=== PATIENT | male | born 1980 | race Caucasian/White ===

== ENCOUNTER 2023-03-01 09:20 | Observation (INO) | payer OTHER, SELFPAY ==
--- OUTSIDE RECORDS SUMMARY | 2023-03-01 09:25 | XMS REPORT | Continuity of Care Document ---
:1980 Author Organization [facility] t Address [address] [place] [address]. [address] [place] [address] Care Team Providers Name Role Phone ZAY MATTHEWS Primary Care Physician Unavailable Jeana SPICER Attending Clinician Unavailable Jeana Francis Attending Clinician Silke Sheffield Attending Clinician SILKE CENTENO Attending Clinician Unavailable Jeana SPICER Admitting Clinician Unavailable SILKE CENETNO Admitting Clinician Unavailable Payers Payer Name Policy Type Policy Number Effective Date Expiration Date S joshua [employer] GENERIC [id number] 2020 00:00:00 Problems Condition Condition Condition Status Onset Resolution Last Treating Co mments Source Name Details Category Date Date Treatment Clinician Date No known No known Disease Unive rs active active ity of problems problems [place] [facility] Allergies, Adverse Reactions, Alerts Allergy Allergy Status Severity Reaction(s) Onset Inactive Treating Comm ents Source Name Type Date Date Clinician Sulfa Propensi Active Rash 2015-10 Univers (Sulfona ty to 2-22 ity of mide adverse 00:00: [place] Antibiot reaction 00 Medica l ics) s Branch SULFA Drug Active Rash 2015-10 Univers (SULFONA Class 2-22 ity of MIDE 00:00: [place] ANTIBIOT 00 Medical ICS) Branch Sulfa Propensi Active Rash 2015-10 Univers (Sulfona ty to 2-22 ity of mide adverse 00:00: [place] Antibiot reaction 00 Medica l ics) s Branch Social History Social Habit Start Date Stop Date Quantity Comments Source Exposure to 2022-03-08 2022-03-18 Not sure [facility] SARS-CoV-2 (event) 00:00:00 10:03:00 Medica l Branch Sex Ass[birth year] At [birth year] [facility] 00:00:00 00:00:00 Medical Branch Smoking Status Start Date Stop Date Source Unknown if ever smoked [facility] [place] Medications Ordered Filled Start Stop Current Ordering Indication Dosage Frequency Signature Comments Components Source Medication Medication Date Date Medication? Clinician (SIG) Name Name iopamidol 2021- No [id number] 100mL 100 mL, Univers (ISOVUE 03-18 Intravenou ity o f 370-500 mL) 17:00: 15:50 s, ONCE, 1 [place] injection 00 :00 dose, On Medica l 100 mL Sat Branch 03/18/22 at 1200, Routine aspirin No 324mg 324 mg, Unive rs chewable 03-18 Oral, ity of tablet 324 16:45: 15:39 ONCE, 1 [place] as mg 00 :00 dose, On Medical Sat Branch 03/18/22 at 1145, Routine NaCl 0.9% No 1000mL at 999 Uni vers (NS) bolus 03-18 mL/hr, ity of infusion 16:30: 17:42 1,000 mL, [place] as 1,000 mL 00 :00 IV Medical Infusion, Branch ONCE, 1 dose, On 03/18/22 at 1130, STAT meclizine 2021- No 25mg 25 mg, Unive rs (TRAVEL-EAS 03-18 Oral, ity of E 16:30: 15:37 ONCE, 1 [place] (MECLIZINE) 00 :00 dose, On Medi corey ) tablet 25 Sat Branch mg 03/18/22 at 1130, DAISHA meclizine Yes [id number] 25mg Take 1 U nivers 25 mg 03-18 tablet by ity of tablet 00:00: mouth [place] 00 every 6 Medical (six) Branch hours as needed for Dizziness. ondansetron 2020- No 4mg 4 mg, Slow Univers (ZOFRAN 10-29 IV Push, ity of (PF)) 18:00: 17:12 ONCE, 1 [place] injection 4 00 :00 dose, Fri Med ical mg 10/29/20 at Branch 1200, DAISHA NaCl 0.9% 2020- No 1000mL at 999 Uni vers (NS) bolus 10-2908 mL/hr, ity of infusion 17:00: 21:26 1,000 mL, [place] as 1,000 mL 00 :00 IV Medical Infusion, Branch ONCE, 1 dose, 10/29/20 at 1100, DAISHA traMADOL 2017-0 Yes 50mg Take 1 Univers (ULTRAM) 50 6-24 tablet by ity of mg tablet 00:00: mouth [place] 00 every 6 Medical (six) Branch hours as needed for Pain (scale 4-6). traMADOL 2017-0 Yes 50mg Take 1 Univers (ULTRAM) 50 6-24 tablet by ity of mg tablet 00:00: mouth [place] 00 every 6 Medical (six) Branch hours as needed for Pain (scale 4-6). SERTRALINE 2015-0 Yes Take by [facility] ers HCL 4-25 mouth. ity of (SERTRALINE 02:44: [place] ORAL) 59 Medical Branch SERTRALINE 2015-0 Yes Take by [facility] ers HCL 4-24 mouth. ity of (SERTRALINE 21:44: [place] ORAL) 59 Medical Branch traMADOL 2015-0 Yes 50mg Take 1 Univers (ULTRAM) 50 4-24 tablet by ity of mg tablet 00:00: mouth [place] 00 every 6 Medical (six) Branch hours as needed for Pain (scale 4-6). Liam Haro PA-C / Sonny Jacques MD TABITHA# [id number] DPS# [id number] x Lic.# [id number] NPI# [id number] traMADOL 2015-0 Yes 50mg Take 1 Univers (ULTRAM) 50 4-24 tablet by ity of mg tablet 00:00: mouth [place] 00 every 6 Medical (six) Branch hours as needed for Pain (scale 4-6). Liam Haro PA-C / Sonny Jacques MD TABITHA# [id number] DPS# [id number] x Lic.# [id number] NPI# [id number] Vital Signs Vital Name Observation Time Observation Value Comments Source Systolic blood 2022-03-18 18:26:00 151 mm[Hg] Univer sity of pressure [place] [facility] Diastolic blood 2022-03-18 18:26:00 88 mm[Hg] Unive rsity of pressure [facility] Heart rate 2022-03-18 18:26:00 52 /min Universi ty of [facility] Respiratory rate 2022-03-18 18:26:00 18 /min Univ ersity of [facility] Oxygen saturation in 2022-03-18 18:26:00 99 /min University of Arterial blood by [facility] Pulse oximetry Branch Body temperature 2022-03-18 15:22:32 36.78 Priti Univ ersity of [facility] Body height 2022-03-18 15:11:00 175.3 cm Universi ty of [facility] Body weight 2022-03-18 15:11:00 86.183 kg Universi ty of [facility] BMI 2022-03-18 15:11:00 28.06 kg/m2 Universi ty [facility] Systolic blood 2020-10-29 20:00:47 131 mm[Hg] Univer sity of pressure [facility] Diastolic blood 2020-10-29 20:00:47 85 mm[Hg] Unive rsity of pressure [facility] Heart rate 2020-10-29 20:00:47 68 /min Universi ty of [facility] Respiratory rate 2020-10-29 20:00:47 14 /min Univ ersity of [facility] Oxygen saturation in 2020-10-29 20:00:47 96 /min University of Arterial blood by [facility] Pulse oximetry Branch Body temperature 2020-10-29 16:35:00 36.78 Priti Univ ersity of [place] [facility] [place] Body weight 2020-10-29 16:35:00 88.905 kg Universi ty [facility] BMI 2020-10-29 16:35:00 28.94 kg/m2 Universi ty [facility] Procedures Procedure Date / Time Performing Clinician Source Performed TROPONIN I 2022-03-18 17:38:00 Jeana Spicer [facility] URINALYSIS 2022-03-18 16:15:00 Jeana Spicer [facility] CT STROKE ANGIOGRAM 2022-03-18 16:01:00 Jeana Spicer [facility] HEAD Medical Branch CT STROKE ANGIOGRAM 2022-03-18 16:01:00 Jeana Spicer [facility] NECK [facility] Branch CT HEAD WO CONTRAST 2022-03-18 15:57:00 Jeana Spicer [facility] XR CHEST 1 VW 2022-03-18 15:47:51 Jeana Spicer Mariia [facility] N-TERMINAL PRO-BNP 2022-03-18 15:35:00 Jeana Spicer [facility] MAGNESIUM 2022-03-18 15:35:00 Jeana Spicer [facility] TROPONIN I 2022-03-18 15:35:00 Jeana Spicer Mariia [facility] COMP. METABOLIC PANEL 2022-03-18 15:35:00 Jeana Spicer [facility] ([id number]) [facility] CBC WITH DIFF 2022-03-18 15:35:00 Jeana Spicer Mariia [facility] CONSENT/REFUSAL FOR 2022-03-18 15:03:23 Doctor Unassigned, No [facility] DIAGNOSIS AND TREATMENT Name [facility] [place] NOTICE OF PRIVACY 2022-03-18 15:03:09 Doctor Unassigned, No [facility] PRACTICES Name [facility] TROPONIN I 2020-10-29 20:00:00 Silke Centeno [facility] XR CHEST 1 VW 2020-10-29 18:15:56 [facility] 2020-10-29 17:11:00 [facility] CHEST 1 VW 2020-10-29 16:53:30 [facility] WITH DIFF 2020-10-29 16:41:00 [facility] PROTHROMBIN TIME / INR 2020-10-29 16:41:00 Silke Centeno [facility] N-TERMINAL PRO-BNP 2020-10-29 16:41:00 Silke Centeno [facility] TROPONIN I 2020-10-29 16:41:00 Silke Centeno [facility] HEPATIC FUNCTION PANEL 2020-10-29 16:41:00 [facility] ([id number]) (ALB,T.PRO,BILI Medical Branch T,BU/BC,ALT,AST,ALK PHOS) BASIC METABOLIC PANEL 2020-10-29 16:41:00 [facility] Silke [facility] (NA, K, CL, CO2, Medical Branch GLUCOSE, BUN, CREATININE, CA) HB ECG ROUTINE & RHYTHM 2020-10-29 16:36:45 Centeno, Silke [facility] Encounters Start End Encounter Admission Attending Care Care Encounter Source Date/Time Date/Time Type Type Clinicians Facility Department ID 2022-03-18 2022-03-18 Emergency X Jeana SPICER [facility] ERT [id number] Univers 10:06:00 13:28:00 [facility] 2022-03-18 2022-03-18 Emergency SoniaJeana [facility] [id number] Univers 10:06:00 13:28:00 Mariiailsa LERNERANGELICA [id number] i ty of [place] [id number] [facility] [id number] [address] 2020-10-29 2020-10-29 Emergency [facility] [id number] Univers 10:37:00 15:27:00 Silke [place] [id number] i ty [facility] [id number] [facility] [id number] [address] 2020-10-29 2020-10-29 Emergency X [facility] ERT [id number] Univers 10:37:00 15:27:00 [facility] Results Test Description Test Time Test Comments Results Result Comments Source TROPONIN I 2022-03-18 18:09:08 Test Item Value Reference Range Interpretation Comme nts TROPONIN I (test code = <0.012 See_Comment [Au tomated message] The [id number]) system which ge nerated this result tra nsmitted reference range : <=0.034 ng/mL. The refe rence range was not u sed to interpret this result as normal/abnormal . ADELAIDE (test code = ADELAIDE) Reference (Normal) Range (defined by the 99th percentile reference limit): <= 0.034 ng/mL Note: Cardiac troponin begins to rise 3-4 hours after the onset of ischemia. Repeat in 4-6 hours if the sample was drawn within 3-4 hours of the onset of the symptom and found normal. Diagnosis of myocardial injury is made with acute changes in cTn concentrations with at least one serial sample above the 99th percentile upper reference limit (URL), taken together with the patient's clinical presentation. Biotin has been reported to cause a negative bias, interpret results relative to patient's use of biotin. Lab Interpretation Normal (test code = 74784-1) [facility] [id number] 16:09:42 Test Item Value Reference Interpretation Comments Range TROPONIN I (test <0.012 See_Comment [Automated code = 2921076486) message] The system which generated this result transmitted reference range : <=0.034 ng/mL. The reference range was not used to interpret this result as normal/abnormal . ADELAIDE (test code = Reference (Normal) ADELAIDE) Range (defined by the 99th percentile reference limit): <= 0.034 ng/mL Note: Cardiac troponin begins to rise 3-4 hours after the onset of ischemia. Repeat in 4-6 hours if the sample was drawn within 3-4 hours of the onset of the symptom and found normal. Diagnosis of myocardial injury is made with acute changes in cTn concentrations with at least one serial sample above the 99th percentile upper reference limit (URL), taken together with the patient's clinical presentation. Biotin has been reported to cause a negative bias, interpret results relative to patient's use of biotin. Lab Interpretation Normal (test code = 38183-7) [facility] [id number] 16:06:41 Test Item Value Reference Range Interpretation Comments NT-proBNP (test code 24 pg/mL See_Comment [Autom ated = 9038027200) message] The system which generated this result transmitted reference range : <=125. The reference range was not used to interpret this result as normal/abnormal . ADELAIDE (test code = ADELAIDE) Biotin has been reported to cause a negative bias, interpret results relative to patient's use of biotin. Lab Interpretation Normal (test code = 93047-8) [facility]2022-[facility]-28 15:58:43 Test Item Value Reference Range Interpretation Comments MAGNESIUM (test code = 2871627353) 1.7 mg/dL 1.7-2.4 Lab Interpretation (test code = Normal 84965-3) [facility] ([id number])2022-03-18 15:58:42 Test Item Value Reference Range Interpretation Comments NA (test code = 138 mmol/L 135-145 4326058975) K (test code = 4.2 mmol/L 3.5-5.0 7284205591) CL (test code = 102 mmol/L 98-108 1548771561) CO2 TOTAL (test code = 22 mmol/L 23-31 L 0089649301) AGAP (test code = 2-16 5696774225) BUN (test code = 16 mg/dL 7-23 2542756040) GLUCOSE (test code = 153 mg/dL 70-110 H 7446260956) CREATININE (test code = 1.13 mg/dL 0.60-1.25 4312903961) TOTAL BILI (test code = 0.6 mg/dL 0.1-1.9 2006319514) CALCIUM (test code = 9.4 mg/dL 8.6-10.6 6565871280) T PROTEIN (test code = 7.8 g/dL 6.3-8.2 1570413960) ALBUMIN (test code = 4.6 g/dL 3.5-5.0 3869024393) ALK PHOS (test code = 104 U/L 34-122 2799798604) ALTv (test code = 29 U/L 5-50 1742-6) AST(SGOT) (test code = 32 U/L 13-40 4299028924) eGFR (test code = mL/min/1.73m2 6837227448) ADELAIDE (test code = ADELAIDE) Association of Glomerular Filtration Rate (GFR) and Staging of Kidney Disease* + --+ --+ ------+| GFR (mL/min/1.73 m2) ?| With Kidney Damage ?| ?Without Kidney Damage+ --------+ --------+ +| ?>90 ?| ?Stage one ?| ? Normal ?+ ---+ ---+ -------+| ?60-89 ?| ?Stage two ?| ? Decreased GFR ? + --+ --+ ------+| ?30-59 ?| ?Stage three ?| ? Stage three ? + --+ --+ ------+| ?15-29 ?| ?Stage four ? | ? Stage four ?+ ---+ ---+ -------+| ?<15 (or dialysis) ? ?| ?Stage five ? | ? Stage five ?+ ---+ ---+ -------+ *Each stage assumes the associated GFR level has been in effect for at least three months. ?Stages 1 to 5, with or without kidney disease, indicate chronic kidney disease. Notes: Determination of stages one and two (with eGFR >59mL/min/1.73 m2) requires estimation of kidney damage for at least three months as defined by structural or functional abnormalities of the kidney, manifested by either:Pathological abnormalities or Markers of kidney damage (including abnormalities in the composition of the blood or urine or abnormalities in imaging tests). Lab Interpretation Abnormal (test code = 36291-9) [facility] WITH [id number] 15:42:01 Test Item Value Reference Range Interpretation Comments WBC (test code = See_Comment [Automated 8623-2) message] The sy stem which generated this result transmitted reference range : 4.20 - 10.70 10*3/?L. The reference range was not used to interpret this result as normal/abnormal . RBC (test code = See_Comment [Automated 885-8) message] The sy stem which generated this result transmitted reference range : 4.26 - 5.52 10*6/?L. The reference range was not used to interpret this result as normal/abnormal . HGB (test code = 16.3 g/dL 12.2-16.4 718-7) HCT (test code = 48.0 % 38.4-49.3 4544-3) MCV (test code = 91.6 fL 81.7-95.6 787-2) MCH (test code = 31.1 pg 26.1-32.7 785-6) MCHC (test code = 34.0 g/dL 31.2-35.0 786-4) RDW-SD (test code = 42.2 fL 38.5-51.6 22862-9) RDW-CV (test code = 12.5 % 12.1-15.4 788-0) PLT (test code = See_Comment [Automated 777-3) message] The sy stem which generated this result transmitted reference range : 150 - 328 10*3/ ?L. The reference r jj was not used to interpret this result as normal/abnormal . MPV (test code = 10.5 fL 9.8-13.0 32623-3) NRBC/100 WBC (test See_Comment [Automat ed code = 1210596917) message] The system which generated this result transmitted reference range : 0.0 - 10.0 /100 WBCs. The refer ence range was not u sed to interpret th is result as normal/abnormal . NRBC x10^3 (test code <0.01 See_Comment [Auto mated = 5287973999) message] The s ystem which generated this result transmitted reference range : 10*3/?L. The reference range was not used to interpret this result as normal/abnormal . GRAN MAT (NEUT) % 60.6 % (test code = 770-8) IMM GRAN % (test code 0.40 % = 8893627839) LYMPH % (test code = 26.2 % 736-9) MONO % (test code = 8.3 % 5905-5) EOS % (test code = 3.4 % 713-8) BASO % (test code = 1.1 % 706-2) GRAN MAT x10^3(ANC) 5.40 10*3/uL 1.99-6.95 (test code = 0059636833) IMM GRAN x10^3 (test 0.04 10*3/uL 0.00-0.06 code = 8761130174) LYMPH x10^3 (test code 2.33 10*3/uL 1.09-3.23 = 731-0) MONO x10^3 (test code 0.74 10*3/uL 0.36-1.02 = 742-7) EOS x10^3 (test code = 0.30 10*3/uL 0.06-0.53 711-2) BASO x10^3 (test code 0.10 10*3/uL 0.01-0.09 H = 704-7) Lab Interpretation Abnormal (test code = 04962-2) [facility] [id number] 21:12:00 Test Item Value Reference Range Interpretation Comments TROPONIN I (test <0.012 See_Comment [Automated code = 6265385435) message] The system which generated this result transmitted reference range : <=0.034 ng/mL. The reference range was not used to interpr et this result as normal/abnormal . ADELAIDE (test code = Equal or Less than ADELAIDE) 0.034 ng/ml---Normal ?Note: Cardiac troponin begins to rise 3-4 hours after the onset of ischemia. Repeat in 4-6 hours if the sample was drawn within 3-4 hours of the onset of the symptom and found normal. Between 0.035 and 0.120 ng/mL--- Borderline. Questionable myocardial injury or necrosis ? ?Note: Serial measurement may be necessary to confirm or exclude the diagnosis of myocardial injury or necrosis; Clinical correlation (symptoms, EKGs, imaging studies, and others) required; Repeat in 4-6 hours if clinically indicated. ? Equal or Higher than 0.121 ng/mL---Abnormal. Myocardial Injury or Necrosis Likely ? Biotin has been reported to cause a negative bias, interpret results relative to patient's use of biotin. ? Lab Interpretation Normal (test code = 87419-3) [facility] 1 [id number] 18:26:15Impression: Unremarkable lateral view of the chest.Exam: XR CHEST 1 10/29/2020 12:08 PM Clinical History: leukocytosis Comparison: Frontal chest radiograph same day Technique: Lateral view of the chest Findings: The retrosternal and retrocardiac spaces are clear.No pleural effusion. ?. The cardiomediastinal silhouette appears normal.Lower thoracic superior endplate small Schmorl nodes. [facility], [facility] Inft User - 10/29/2020 12:27 PM CSTExam: XR CHEST 1 VW 10/29/2020 12:08 PMClinical History: leukocytosis Comparison: Frontal chest radiograph same dayTechnique: Lateral view of the chestFindings:The retrosternal and retrocardiac spaces are clear.No pleural effusion. . The cardiomediastinal silho uette appears normal.Lower thoracic superior endplate small Schmorl nodes.IMPRESSIONImpression: Unremarkable lateral view of the chest.[facility] Hospital[facility]inalysis2021-01-08 17:53:00 Test Item Value Reference Range Interpretation Comments APPEARANCE (test code = Clear Clear 8517893914) COLOR (test code = Yellow Yellow 8980615444) PH (test code = 4.8-8.0 4856651319) SP GRAVITY (test code = 1.003-1.030 9059104803) GLU U QUAL (test code = Normal Normal 4915963218) BLOOD (test code = Negative Negative 4973598218) KETONES (test code = Negative Negative 5399077846) PROTEIN (test code = Negative Negative 2887-8) UROBILIN (test code = Normal Normal 8373005766) BILIRUBIN (test code = Negative Negative 1867310029) NITRITE (test code = Negative Negative 5347689417) LEUK ROM (test code = Negative Negative 7868120205) RBC/HPF (test code = See_Comment [Autom ated message] 3728005104) The system [employer] generated this result transmitted ref erence range: 0 - 3 HP F. The reference range was not used to int erpret this result as normal/abnormal . WBC/HPF (test code = <1 See_Comment [Autom ated message] 3908491564) The system [employer] generated this result transmitted ref erence range: 0 - 5 HP F. The reference range was not used to int erpret this result as normal/abnormal . BACTERIA (test code = Few Negative A 3755745744) Lab Interpretation (test Abnormal code = 85449-7) [facility] Hospital[facility]rop[facility] [id number] 17:13:00 Test Item Value Reference Range Interpretation Comments TROPONIN I (test <0.012 See_Comment [Automated code = 0012645863) message] The system which generated this result transmitted reference range : <=0.034 ng/mL. The reference range was not used to interpr et this result as normal/abnormal . ADELAIDE (test code = Equal or Less than ADELAIDE) 0.034 ng/ml---Normal ?Note: Cardiac troponin begins to rise 3-4 hours after the onset of ischemia. Repeat in 4-6 hours if the sample was drawn within 3-4 hours of the onset of the symptom and found normal. Between 0.035 and 0.120 ng/mL--- Borderline. Questionable myocardial injury or necrosis ? ?Note: Serial measurement may be necessary to confirm or exclude the diagnosis of myocardial injury or necrosis; Clinical correlation (symptoms, EKGs, imaging studies, and others) required; Repeat in 4-6 hours if clinically indicated. ? Equal or Higher than 0.121 ng/mL---Abnormal. Myocardial Injury or Necrosis Likely ? Biotin has been reported to cause a negative bias, interpret results relative to patient's use of biotin. ? Lab Interpretation Normal (test code = 23573-1) [facility]AL [id number] 17:10:00 Test Item Value Reference Range Interpretation Comments NT-proBNP (test code 15 pg/mL See_Comment [Autom ated = 8171630617) message] The system which generated this result transmitted reference range : <=125. The reference range was not used to interpret this result as normal/abnormal . ADELAIDE (test code = ADELAIDE) Biotin has been reported to cause a negative bias, interpret results relative to patient's use of biotin. Lab Interpretation Normal (test code = 28784-3) [facility]th[facility] Time (PT) / [id number] 17:04:00 Test Item Value Reference Range Interpretation Comments PROTIME PATIENT (test See_Comment [Auto mated message] code = 5964-2) The system wh ich generated this result transmitted ref erence range: 12.0 - 1 4.7 Seconds. The re ference range was not u sed to interpret this result as normal/abnor mal. INR (test code = 6301-6) Nor mal INR <1.1; Warfarin Therap eutic range 2.0 to 3. 0 or 2.5 to 3.5, dep ending upon the indica tions. Lab Interpretation (test Normal code = 44876-9) [facility] Metabolic Panel (NA, K, CL, CO2, GLUCOSE, BUN, CREATININE, CA)2020-10-29 17:01:00 Test Item Value Reference Range Interpretation Comments NA (test code = 139 mmol/L 135-145 1397774988) K (test code = 4.1 mmol/L 3.5-5 4522230817) CL (test code = 103 mmol/L 98-108 1426421891) CO2 TOTAL (test code = 26 mmol/L 23-31 0581863665) AGAP (test code = 2-16 6259579036) BUN (test code = 13 mg/dL 7-23 3306475506) GLUCOSE (test code = 114 mg/dL 70-110 H 7321797738) CREATININE (test code = 1.35 mg/dL 0.6-1.25 H 1176025532) CALCIUM (test code = 9.2 mg/dL 8.6-10.6 7610708685) eGFR Calculation mL/min/1.73m2 (Non-) (test code = 8119819888) eGFR Calculation mL/min/1.73m2 () (test code = 5867661668) ADELAIDE (test code = ADELAIDE) Association of Glomerular Filtration Rate (GFR) and Staging of Kidney Disease* + --+ --+ ------+| GFR (mL/min/1.73 m2) ?| With Kidney Damage ?| ?Without Kidney Damage+ --------+ --------+ +| ?>90 ?| ?Stage one ?| ? Normal ?+ ---+ ---+ -------+| ?60-89 ?| ?Stage two ?| ? Decreased GFR ? + --+ --+ ------+| ?30-59 ?| ?Stage three ?| ? Stage three ? + --+ --+ ------+| ?15-29 ?| ?Stage four ? | ? Stage four ?+ ---+ ---+ -------+| ?<15 (or dialysis) ? ?| ?Stage five ? | ? Stage five ?+ ---+ ---+ -------+ *Each stage assumes the associated GFR level has been in effect for at least three months. ?Stages 1 to 5, with or without kidney disease, indicate chronic kidney disease. Notes: Determination of stages one and two (with eGFR >59mL/min/1.73 m2) requires estimation of kidney damage for at least three months as defined by structural or functional abnormalities of the kidney, manifested by either:Pathological abnormalities or Markers of kidney damage (including abnormalities in the composition of the blood or urine or abnormalities in imaging tests). Lab Interpretation Abnormal (test code = 58689-3) [facility] (ALB, T.PRO, BILI T, BU/BC, ALT, AST, ALK PHOS)2020-10-29 17:00:00 Test Item Value Reference Range Interpretation Comments TOTAL BILI (test code = 0028137215) 0.6 mg/dL 0.1-1.1 BILI UNCON (test code = 0994366662) 0.5 mg/dL 0.1-1.1 BILI CONJ (test code = 3765160839) 0.0 mg/dL 0-0.3 T PROTEIN (test code = 6027325234) 8.0 g/dL 6.3-8.2 ALBUMIN (test code = 3214659645) 4.6 g/dL 3.5-5 ALK PHOS (test code = 2346637295) 132 U/L 34-122 H ALTv (test code = 1742-6) 53 U/L 5-50 H AST(SGOT) (test code = 8322245714) 42 U/L 13-40 H Lab Interpretation (test code = Abnormal 93453-8) [facility] 1 [id number] 16:55:39Impression: No acute cardiac pulmonary abnormality.Exam: XR CHEST 1 VW 10/29/2020 10:47 AM Clinical History: CP Comparison: None Technique: frontal view of the chest Findings: The lungs are clear. ?No pleural effusion. ?No pneumothorax. The cardiac size is normal No acute osseous abnormality. [facility], Radiant Results Inft User - 10/29/2020 10:56 AM CSTExam: XR CHEST 1 VW 10/29/2020 10:47 AMClinical History:CP Comparison: NoneTechnique: frontal view of the chestFindings:The lungs are clear. No pleural effusion. No pneumothorax. The cardiac size is normal No acute osseous abnormality.IMPRESSIONImpression: No acute cardiac pulmonary abnormality.[facility] with [facility] 2020-10-29 16:53:00 Test Item Value Reference Range Interpretation Comments WBC (test code = See_Comment H [Automated 6690-2) message] The system which generated this result transmit jen reference range : 4.20 - 10.70 10*3/?L. The reference range was not used to interpret this result as normal/abnormal . RBC (test code = See_Comment [Automated 789-8) message] The system which generated this result transmit jen reference range : 4.26 - 5.52 10*6/?L. The reference range was not used to interpret this result as normal/abnormal . HGB (test code = 16.4 g/dL 12.2-16.4 718-7) HCT (test code = 48.7 % 38.4-49.3 4544-3) MCV (test code = 91.7 fL 81.7-95.6 787-2) MCH (test code = 30.9 pg 26.1-32.7 785-6) MCHC (test code = 33.7 g/dL 31.2-35 786-4) RDW-SD (test code = 44.6 fL 38.5-51.6 65535-2) RDW-CV (test code = 13.2 % 12.1-15.4 788-0) PLT (test code = See_Comment [Automated 777-3) message] The system which generated this result transmit jen reference range : 150 - 328 10*3/ ?L. The reference range was not u sed to interpret th is result as normal/abnormal . MPV (test code = 10.6 fL 9.8-13 56598-4) NRBC/100 WBC (test See_Comment [Automat ed code = 6034179136) message] The system which generated this result transmit jen reference range : 0.0 - 10.0 /100 WBCs. The reference range was not used to interpret this result as normal/abnormal . NRBC x10^3 (test code <0.01 See_Comment [Auto mated = 0128522597) message] The system which generated this result transmit jen reference range : 10*3/?L. The reference range was not used to interpret this result as normal/abnormal . GRAN MAT (NEUT) % 67.6 % (test code = 770-8) IMM GRAN % (test code 0.60 % = 9175666041) LYMPH % (test code = 21.3 % 736-9) MONO % (test code = 6.8 % 5905-5) EOS % (test code = 3.1 % 713-8) BASO % (test code = 0.6 % 706-2) GRAN MAT x10^3(ANC) 10.58 10*3/uL 1.99-6.95 H (test code = 9162011008) IMM GRAN x10^3 (test 0.10 10*3/uL 0-0.06 H code = 9645052714) LYMPH x10^3 (test code 3.34 10*3/uL 1.09-3.23 H = 731-0) MONO x10^3 (test code 1.06 10*3/uL 0.36-1.02 H = 742-7) EOS x10^3 (test code = 0.48 10*3/uL 0.06-0.53 711-2) BASO x10^3 (test code 0.10 10*3/uL 0.01-0.09 H = 704-7) Lab Interpretation Abnormal (test code = 42791-0) [facility]"
[2023-03-01 09:55] LABS: Absolute Lymphocytes (CBC) 1.6 K/uL (0.7-4.9); Hematocrit 47.7 % (39.6-49.0); Lymphocytes % 15.9 % (15.3-44.8); MCV 90.4 fL (80-100); MPV 8.4 fL (7.6-11.3); RBC Red Blood Cell Count 5.27 M/uL (4.33-5.43)
--- NOTE | 2023-03-01 09:55 | RAD REPORT ---
EXAM DESCRIPTION: CT - Ct Stroke Brain Wo Cont - 03/01/2023 9:43 am CLINICAL HISTORY: STROKE ALERT COMPARISON: Head angio dated 03/01/2023; Neck Angio dated 03/01/2023 TECHNIQUE: Noncontrast head CT images ad were obtained without IV contrast. Multiplanar reformats we re generated and reviewed. All CT scans are performed using dose optimization technique as appropriate and may include automated exposure control or mA/KV adjustment according to patient size. FINDINGS: No intracranial hemorrhage, mass, or edema. Midline structures are unremarkable. Normal ventricular caliber for age. Grace-white matter differentiation is preserved, without evidence of acute infarct. No abnormal extra- axial fluid collections. Mastoid air cells and visualized portions of the paranasal sinuses are clear. No acute bony findings. IMPRESSION: No evidence of an acute intracranial process. The findings were communicated to Mykel Fitzpatrick on 03/01/2023 at 09:50 hours.
[2023-03-01 10:02] LABS: Protime INR 1.02
--- NOTE | 2023-03-01 10:11 | RAD REPORT ---
EXAM DESCRIPTION: CT - Head angio - 03/01/2023 9:46 am CLINICAL HISTORY: TIA COMPARISON: Ct Stroke Brain Wo Cont dated 03/01/2023; Neck Angio dated 03/01/2023 TECHNIQUE: Axial CT angiography images of the head was performed with multiplanar and maximum intens ity projection reconstructions. Images performed following intravenous administration of 100mL Isovue 370. All CT scans are performed using dose optimization technique as appropriate and may include automated exposure control or mA/KV adjustment according to patient size. FINDINGS: No evidence of large vessel occlusion. No evidence of aneurysm or dissection flap is detec jen. No flow-limiting stenosis or vascular malformation identified. Antegrade flow is seen in the vertebral arteries. The vertebral arteries are codominant. The visualized dural venous sinuses are grossly patent. Scattered areas of paranasal sinus mucosal thickening. Small air-fluid levels in the right maxillary and bilateral sphenoid sinuses. IMPRESSION: No evidence of large vessel occlusion or flow-limiting stenosis.
[2023-03-01 10:16] LABS: Albumin 3.9 g/dL (3.4-5.0); Bilirubin Direct 0.1 mg/dL (0-0.2); Bilirubin Indirect, Calculated 0.4 (0.2-0.8); Bilirubin Total 0.5 mg/dL (0.2-1.0); Magnesium 2.2 mg/dL (1.6-2.4); Potassium 3.8 mEq/L (3.5-5.1); Protein, Total 8.1 g/dL (6.4-8.2); Troponin High Sensitivity 23.4 pg/mL (<58.9)
--- NOTE | 2023-03-01 10:28 | RAD REPORT ---
EXAM DESCRIPTION: CT - Neck Angio - 03/01/2023 9:53 am CLINICAL HISTORY: tia COMPARISON: No comparisons TECHNIQUE: Axial CT angiography images of the head was performed with multiplanar and maximum intens ity projection reconstructions. Images performed following intravenous administration of 100mL Isovue 370. All CT scans are performed using dose optimization technique as appropriate and may include automated exposure control or mA/KV adjustment according to patient size. Quantification of carotid stenosis, if any, is performed according to NASCET criteria. FINDINGS: A left aortic arch is identified with normal three vessel configuration of the great vesse ls. No significant flow abnormality is seen of the common carotid bilaterally. No significant stenosis is identified involving the cervical segments of both internal carotid arteri es. Small crescentic peripheral isodense filling defects along the posterior wall of the internal car otid arteries more apparent on the right, may relate to mild noncalcified atherosclerotic plaque. Normal flow is seen within both vertebral arteries. IMPRESSION: No significant flow abnormality of the neck vessels is identified.
--- NOTE | 2023-03-01 10:32 | RAD REPORT ---
EXAM DESCRIPTION: [facility] Single View03/01/2023 10:03 am CLINICAL HISTORY: tia COMPARISON: CHEST PA AND LAT 2 VIEW dated 04/13/2015 TECHNIQUE: Portable AP view of the chest. FINDINGS: The lungs are clear. No pneumothorax or effusion. The cardiomediastinal contours are unrem arkable. IMPRESSION: No acute cardiopulmonary process.
[2023-03-01] MEDS ORDERED: ASPIRIN 325 MG TAB ONE (10:35)
--- NOTE | 2023-03-01 11:00 | EDPHYS ---
Physician Documentation [facility] Name: Declan Dee Age: 43 yrs Sex: Male : 1980 Arrival Date: 03/01/2023 Time: 09:20 Bed 14 Private MD: ED Physician Mykel Fitzpatrick HPI: 03/01 09:40 This 43 yrs old Male presents to ER via Ambulatory with complaints of Headache, rt numbness. 09:40 Patient presents to the ED with a headache starting since last night as well as a rt numbness to the left side of his face as well as a dizziness which she does not describe as a lightheadedness or vertigo. The patient states that he first noticed the numbness at about 630, however, his last known normal without any neurologic symptoms were at about 3:30 AM this morning when he woke up. Patient states that he has had a TIA in the past. Patient states that his numbness has almost completely resolved except for some numbness to the left corner of his mouth. Denies any weakness. Denies other acute complaints at this time. Symptoms are moderate in severity, no other aggravating or alleviating factors.. Historical: - Allergies: 09:24 No Known Allergies; ld1 - PMHx: 09:24 Hypertensive disorder; Transient cerebral ischemia; ld1 - PSHx: 09:24 None; ld1 - Immunization history:: Adult Immunizations up to date, Client reports having NOT received the Covid vaccine. - Social history:: Smoking status: Patient denies any tobacco usage or history of. Patient/guardian denies using alcohol. - Family history:: not pertinent. ROS: 09:40 Constitutional: Negative for fever, chills, and weight loss, Cardiovascular: Negative rt for chest pain, palpitations, and edema, Respiratory: Negative for shortness of breath, cough, wheezing, and pleuritic chest pain, MS/Extremity: Negative for injury and deformity, Skin: Negative for injury, rash, and discoloration, Psych: Negative for depression, anxiety, suicide ideation, homicidal ideation, and hallucinations. 09:40 Abdomen/GI: Positive for nausea, Negative for abdominal pain. 09:40 Neuro: Positive for dizziness, headache, numbness. Exam: 09:40 Constitutional: This is a well developed, well nourished patient who is awake, alert, rt and in no acute distress. Head/Face: Normocephalic, atraumatic. Chest/axilla: Normal chest wall appearance and motion. Nontender with no deformity. No lesions are appreciated. Cardiovascular: Regular rate and rhythm with a normal S1 and S2. No gallops, murmurs, or rubs. Normal PMI, no JVD. No pulse deficits. Respiratory: Lungs have equal breath sounds bilaterally, clear to auscultation and percussion. No rales, rhonchi or wheezes noted. No increased work of breathing, no retractions or nasal flaring. Abdomen/GI: Soft, non-tender, with normal bowel sounds. No distension or tympany. No guarding or rebound. No evidence of tenderness throughout. MS/ Extremity: Pulses equal, no cyanosis. Neurovascular intact. Full, normal range of motion. Psych: Awake, alert, with orientation to person, place and time. Behavior, mood, and affect are within normal limits. 09:40 Eyes: Extraocular muscles intact, no nystagmus, no visual field deficits. 09:40 Neuro: Cranial nerves II through XII intact, strength and sensation intact in upper and lower extremities, speech normal, no ataxia on [id number]. 10:03 ECG was reviewed by the Attending Physician. rt 11:12 Radiologist reports: no Acute findings rt Vital Signs: 09:22 BP 141 / 102; Pulse 75; Resp 22; Temp 98.7(O); Pulse Ox 98% on R/A; Weight 86.18 kg; ld1 Height 5 ft. 9 in. ; Pain 0/10; 10:06 BP 135 / 81; Pulse 73; Resp 14; Pulse Ox 100% on R/A; ld1 11:07 BP 130 / 92; Pulse 66; Resp 14; Pulse Ox 100% on R/A; Pain 5/10; nj1 09:22 Body Mass Index 28.06 (86.18 kg, 175.26 cm) ld1 09:22 Pain Scale: Adult ld1 11:07 Pain Scale: Adult nj1 MDM: 09:30 Patient medically screened. rt 11:12 Differential diagnosis: CVA, TIA. Data reviewed: vital signs, nurses notes, lab test rt result(s), radiologic studies. Consideration of Admission/Observation Patient was admitted/placed on observation. Management of patient was discussed with the following: Hospitalist: Agrees to admit. I considered the following discharge prescriptions or medication management in the emergency department Medications were administered in the Emergency Department. See MAR. Independent interpretation of the following test(s) in the Emergency Department CT Scan: My interpretation is No hemorrhage seen on my interpretation of the CT scan images. Counseling: I had a detailed discussion with the patient and/or guardian regarding: the historical points, exam findings, and any diagnostic results supporting the discharge/admit diagnosis, the presence of at least one elevated blood pressure reading (>120/80) during this emergency department visit, the need for further work-up and treatment in the hospital. ED course: Patient's last known normal was greater than 4.5 hours prior to arrival, contraindicating thrombolytic administration.. 03/01 09:32 Order name: Basic Metabolic Panel; Complete Time: 10:18 rt 03/01 09:32 Order name: CBC with Diff; Complete Time: 10:18 rt 03/01 09:32 Order name: Hepatic Function; Complete Time: 10:18 rt 03/01 09:32 Order name: High Sensitivity Troponin; Complete Time: 10:18 rt 03/01 09:32 Order name: Magnesium; Complete Time: 10:18 rt 03/01 09:32 Order name: Protime (+inr); Complete Time: 10:18 rt 03/01 09:32 Order name: Ptt, Activated; Complete Time: 10:18 rt 03/01 09:49 Order name: Glucose, Ancillary Testing; Complete Time: 10:18 EDPR 03/01 10:18 Order name: CREATININE WHOLE BLOOD; Complete Time: 10:19 EDPR 03/01 11:22 Order name: CBC with Automated Diff EDMS 03/01 11:22 Order name: CBC with Automated Diff EDMS 03/01 11:22 Order name: Comprehensive Metabolic Panel EDPR 03/01 11:22 Order name: Comprehensive Metabolic Panel EDPR 03/01 11:22 Order name: Factor V Leiden Mutation EDMS 03/01 11:22 Order name: Factor V Leiden Mutation EDMS 03/01 11:22 Order name: Lipid Profile EDMS 03/01 11:22 Order name: Lipid Profile EDPR 03/01 11:22 Order name: Magnesium EDMS 03/01 11:22 Order name: Magnesium EDMS 03/01 11:22 Order name: Phosphorus EDMS 03/01 11:22 Order name: Phosphorus EDPR 03/01 09:32 Order name: CT Stroke Brain w/o Contrast; Complete Time: 10:18 rt 03/01 09:32 Order name: Stroke CXR 1 View; Complete Time: 10:34 rt 03/01 09:32 Order name: CT Head Angio; Complete Time: 10:18 rt 03/01 09:32 Order name: CT Neck Angio; Complete Time: 10:34 rt 03/01 11:18 Order name: Brain Wo Cont EDPR 03/01 11:22 Order name: Echo with Doppler EDMS 03/01 11:22 Order name: Chest Pa And Lat (2 Views) EDPR 03/01 09:32 Order name: EKG; Complete Time: 09:33 rt 03/01 11:22 Order name: Physical Therapy Consult EDPR 03/01 11:22 Order name: Heart Healthy EDPR 03/01 11:22 Order name: EKG Electrocardiogram EDPR 03/01 09:32 Order name: Accucheck; Complete Time: 09:37 rt 03/01 09:32 Order name: Cardiac monitoring; Complete Time: 09:32 rt 03/01 09:32 Order name: EKG - Nurse/Tech; Complete Time: 10:03 rt 03/01 09:32 Order name: IV Saline Lock; Complete Time: 09:32 rt 03/01 09:32 Order name: Labs collected and sent; Complete Time: 09:37 rt 03/01 09:32 Order name: NPO; Complete Time: 09:32 rt 03/01 09:32 Order name: O2 Per Protocol; Complete Time: 09:32 rt 03/01 09:32 Order name: O2 Sat Monitoring; Complete Time: 09:32 rt 03/01 09:32 Order name: Stroke Swallow Screen; Complete Time: 09:32 rt EC:03 Rate is 58 beats/min. Rhythm is regular, Sinus bradycardia with No ectopy. Right axis rt deviation noted. HI interval is normal. QRS interval is normal. QT interval is normal. No Q waves. T waves are Normal. No ST changes noted. Interpreted by me. Administered Medications: 10:31 Drug: Aspirin PO 325 mg Route: PO; nj1 11:31 Follow up: Response: No adverse reaction nj1 11:06 Drug: Acetaminophen PO 1000 mg Route: PO; nj1 11:31 Follow up: Response: No adverse reaction nj1 Disposition Summary: 03/01/23 10:59 Hospitalization Ordered Hospitalization Status: Observation rt Provider: Twila Rodriguez rt Location: Telemetry/MedSurg (observation) rt Condition: Stable rt Problem: new rt Symptoms: have improved rt Bed/Room Type: Standard rt Room Assignment: 228(03/01/23 13:17) em1 Diagnosis - Transient cerebral ischemic attack, unspecified rt Forms: - Medication Reconciliation Form rt - SBAR form rt Signatures: Dispatcher [employer] [place] Win em1 Sheila Lay, RN RN ld1 Mykel Fitzpatrick MD MD rt Stephani Kauffman RN RN nj1 Corrections: (The following items were deleted from the chart) 13:17 10:59 rt em1
--- NOTE | 2023-03-01 11:00 | ER ---
Nurse's Notes [facility] Name: Declan Dee Age: 43 yrs Sex: Male : 1980 Arrival Date: 03/01/2023 Time: 09:20 Bed 14 Private MD: Diagnosis: Transient cerebral ischemic attack, unspecified Presentation: 03/01 09:22 Chief complaint: EMS states: transported patient from [facility] for left sided facial ld1 numbness since 0630AM today. Pt c/o left facial numbness, dizziness, nausea, headache. Coronavirus screen: At this time, the client does not indicate any symptoms associated with coronavirus-19. Ebola Screen: No symptoms or risks identified at this time. Initial Sepsis Screen: Does the patient meet any 2 criteria? No. Patient's initial sepsis screen is negative. Does the patient have a suspected source of infection? No. Patient's initial sepsis screen is negative. Risk Assessment: Do you want to hurt yourself or someone else? Patient reports no desire to harm self or others. Onset of symptoms was March 01, 2023 at 06:30. 09:22 Method Of Arrival: Ambulatory ld1 09:22 Acuity: ROHIT 2 ld1 Triage Assessment: 09:24 General: Appears in no apparent distress. comfortable, Behavior is calm, cooperative, ld1 appropriate for age. Pain: Denies pain. EENT: No signs and/or symptoms were reported regarding the EENT system. Neuro: Reports dizziness, headache numbness in left cheek. Cardiovascular: Capillary refill < 3 seconds Patient's skin is warm and dry. Rhythm is sinus rhythm. Respiratory: Airway is patent Respiratory effort is even, labored. GI: Abdomen is flat, non-distended. : No signs and/or symptoms were reported regarding the genitourinary system. Derm: No signs and/or symptoms reported regarding the dermatologic system. Musculoskeletal: No signs and/or symptoms reported regarding the musculoskeletal system. Historical: - Allergies: 09:24 No Known Allergies; ld1 - PMHx: 09:24 Hypertensive disorder; Transient cerebral ischemia; ld1 - PSHx: 09:24 None; ld1 - Immunization history:: Adult Immunizations up to date, Client reports having NOT received the Covid vaccine. - Social history:: Smoking status: Patient denies any tobacco usage or history of. Patient/guardian denies using alcohol. - Family history:: not pertinent. Screenin:26 [facility] ED Fall Risk Assessment (Adult) History of falling in the last 3 months, ld1 including since admission No falls in past 3 months (0 pts). Abuse screen: Denies threats or abuse. Denies injuries from another. Nutritional screening: No deficits noted. Tuberculosis screening: No symptoms or risk factors identified. Assessment: 09:26 Reassessment: See triage assessment. ERP at bedside assessing patient. ld1 10:19 Reassessment: Patient appears in no apparent distress at this time. Patient and/or ld1 family updated on plan of care and expected duration. Pain level reassessed. Patient is alert, oriented x 3, equal unlabored respirations, skin warm/dry/pink. Patient denies pain at this time. 11:06 Reassessment: Patient appears in no apparent distress at this time. Patient and/or nj1 family updated on plan of care and expected duration. Pain level reassessed. Patient is alert, oriented x 3, equal unlabored respirations, skin warm/dry/pink. Pain: Complains of pain in Head Pain currently is 5 out of 10 on a pain scale. 12:00 Reassessment: Patient appears in no apparent distress at this time. Patient and/or nj1 family updated on plan of care and expected duration. Pain level reassessed. Patient is alert, oriented x 3, equal unlabored respirations, skin warm/dry/pink. 13:25 Reassessment: Unsuccessful attempt to call report at this time. Nurse is at lunch. nj1 Vital Signs: 09:22 BP 141 / 102; Pulse 75; Resp 22; Temp 98.7(O); Pulse Ox 98% on R/A; Weight 86.18 kg; ld1 Height 5 ft. 9 in. ; Pain 0/10; 10:06 BP 135 / 81; Pulse 73; Resp 14; Pulse Ox 100% on R/A; ld1 11:07 BP 130 / 92; Pulse 66; Resp 14; Pulse Ox 100% on R/A; Pain 5/10; nj1 09:22 Body Mass Index 28.06 (86.18 kg, 175.26 cm) ld1 09:22 Pain Scale: Adult ld1 11:07 Pain Scale: Adult [facility] ED Course: :22 Patient arrived in ED. ld1 09:22 Mykel Fitzpatrick MD is Attending Physician. rt 09:22 Sheila Lay, RN is Primary Nurse. ld1 09:24 Triage completed. ld1 09:24 Arm band placed on right wrist. ld1 09:26 Patient has correct armband on for positive identification. Placed in gown. Bed in low ld1 position. Call light in reach. Side rails up X2. electronic device monitor on. Pulse ox on. NIBP on. Door closed. Noise minimized. Warm blanket given. 09:26 No provider procedures requiring assistance completed. Maintain EMS IV. Dressing ld1 intact. Good blood return noted. Site clean \T\ dry. Gauge \T\ site: 18G LAC. 09:45 CT Stroke Brain w/o Contrast In Process Unspecified. EDMS 09:48 CT Head Angio In Process Unspecified. EDMS 09:55 CT Neck Angio In Process Unspecified. EDMS 10:05 Stroke CXR 1 View In Process Unspecified. EDMS 10:59 Twila Rodriguez MD is Hospitalizing Provider. rt 14:03 Patient admitted, IV remains in place. nj1 Administered Medications: 10:31 Drug: Aspirin PO 325 mg Route: PO; nj1 11:31 Follow up: Response: No adverse reaction nj1 11:06 Drug: Acetaminophen PO 1000 mg Route: PO; nj1 11:31 Follow up: Response: No adverse reaction [facility] Medication: 09:26 VIS not applicable for this client. ld1 Outcome: 10:59 Decision to Hospitalize by Provider. rt 14:03 Admitted to Med/surg accompanied by tech, via wheelchair, room 228, Report called to [facility] Nurse Velazquez 14:03 Condition: stable 14:03 Instructed on the need for admit. 14:26 Patient left the ED. iw Signatures: Dispatcher [employer] EDMS Nadiya Wick RN RN iw Sheila Lay RN RN ld1 Mykel Fitzpatrick MD MD rt Stephani Kauffman RN RN nj
[2023-03-01] MEDS ORDERED: ACETAMINOPHEN 500 MG TAB ONE (11:11)
[2023-03-01] MEDS ORDERED: ONDANSETRON 4 MG/2 ML VIAL IV PRN (11:17)
[2023-03-01] MEDS ORDERED: ACETAMINOPHEN 500 MG TAB PO PRN (11:17)
--- NOTE | 2023-03-01 11:26 | P.HP ---
Certification for Inpatient Patient admitted to: Observation With expected LOS: <2 Midnights Patient will require the following post-hospital care: None Practitioner: I am a practitioner with admitting privileges, knowledge of patient current condition, hospital course, and medical plan of care. Services: Services provided to patient in accordance with Admission requirements found in Title 42 Section 412.3 of the Code of Federal Regulations Patient History Date of Service: 03/01/23 History of Present Illness: Patient is a 43-year-old gentleman who came into the hospital with a headache and numbness to the left side of the face. Patient also was having vertigo type symptoms. Patient states that he first noticed the numbness around 630 in the morning. However he started having neurologic symptoms last night before he went to bed as he was having a severe headache. He has had numbness when he was awake but he cannot recall if he had numbness when he was awake but he does know that he had it around 6 o'clock. As he not really able to recall the exact time that he was normal we will hold off on thrombolytics. Will touch base with neurology as well. His symptoms had pretty much resolved except for some vague numbness to the left side of his mouth. Will get an MRI of the brain to further evaluate. He will be admitted for observation and will monitor his hemodynamics closely. - Past Medical/Surgical History -: TIA Past Surgical History: Patient denies surgical history - Family History Father Family History: Reviewed- Non-Contributory - Social History Smoking Status: Former smoker Alcohol use: No CD- Drugs: No Review of Systems 10-point ROS is otherwise unremarkable Physical Examination - Vital Signs Temperature: 98 F Blood Pressure: 140/80 Pulse: 70 Respirations: 20 Pulse Ox (%): 96 - Physical Exam General: Alert, In no apparent distress, Oriented x3 HEENT: Atraumatic, PERRLA, Mucous membr. moist/pink, EOMI, Sclerae nonicteric Neck: Supple, 2+ carotid pulse no bruit, No LAD, Without JVD or thyroid abnormality Respiratory: Clear to auscultation bilaterally, Normal air movement Cardiovascular: Regular rate/rhythm, Normal S1 S2, No murmurs Gastrointestinal: Normal bowel sounds, Soft and benign, Non-distended, No tenderness Musculoskeletal: No clubbing, No swelling, No tenderness Integumentary: No rashes Neurological: Normal gait, Normal speech, Normal strength at 5/5 x4 extr, Normal tone, Cranial nerves 3-12 intact, Normal affect, Abnormal sensation Lymphatics: No axilla or inguinal lymphadenopathy - Studies Laboratory Data (last 24 hrs) 03/01/23 09:38: PT 11.2, INR 1.02, APTT 30.8 03/01/23 09:38: WBC 9.90, Hgb 16.2, Hct 47.7, Plt Count 281 03/01/23 09:38: Sodium 135 L, Potassium 3.8, BUN 19 H, Creatinine 1.16, Glucose 149 H, Magnesium 2.2, Total Bilirubin 0.5, AST 25, ALT 46, Alkaline Phosphatase 105 Assessment & Plan - Problems (Diagnosis) (1) TIA (transient ischemic attack) Current Visit: Yes Status: Acute (2) Left facial numbness Current Visit: Yes Status: Acute - Plan -MRI of the brain -neurology consultation as outpatient -physical therapy evaluation -DVT prophylaxis -bedside swallow eval -Antiplatelet therapy and statin therapy -Lipid profile -Patient's stroke scale is 1 Discharge Plan: Home Plan to discharge in: 24 Hours - Advance Directives Does patient have a Living Will: No Does patient have a Durable POA for Healthcare: No - Code Status/Comfort Care Code Status Assessed: Yes Code Status: Full Code Critical Care: No Time Spent Managing PTS Care (In Minutes): 45
[2023-03-01] MEDS ORDERED: ACETAMIN/CAFFEINE/BUTALB TAB PO PRN (11:27)
[2023-03-01] MEDS ORDERED: AMLODIPINE 5 MG TAB PO ONE (11:27)
[2023-03-01] MEDS ORDERED: NA CHLORIDE 0.9% 1,000 ML IV SCH (12:00)
[2023-03-01] MEDS ORDERED: ACETAMIN/CAFFEINE/BUTALB TAB PO ONE (12:58)
[2023-03-01] MEDS ORDERED: AMLODIPINE 5 MG TAB ONE (12:58)
[2023-03-01] MEDS ORDERED: NA CHLORIDE 0.9% 1,000 ML ONE (12:58)
[2023-03-01 14:46] VITALS: BMI 27.2
--- NOTE | 2023-03-01 15:17 | RAD REPORT ---
EXAM DESCRIPTION: MRI - Brain Wo Cont - 03/01/2023 3:09 pm CLINICAL HISTORY: CVA COMPARISON: Ct Stroke Brain Wo Cont dated 03/01/2023 TECHNIQUE: Sagittal T1-weighted images were obtained along with PD/heavily T2-weighted and T2-FLAIR images. Axial DWI and ADC mapping sequences were also obtained along with coronal heavily T2-weighted images were obtained. FINDINGS: No intracranial hemorrhage, mass or acute infarction. There is no edema or shift of midlin e structures. No extra-axial fluid collections. Signal voids are seen as a normal finding in the blanca r intracranial vessels. No significant white matter disease. Circumferential thickening within the maxillary sinuses. Multiple ethmoid air cells as well as the ri ght sphenoid sinus are also thickened and partially opacified. IMPRESSION: No acute intracranial abnormality. Chronic paranasal sinus disease.
[2023-03-01] MEDS ORDERED: ATORVASTATIN 40 MG TAB PO SCH (21:00)
[2023-03-02 02:05] VITALS: O2SAT 96
--- NOTE | 2023-03-02 05:36 | EKG ---
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
[2023-03-02 06:38] LABS: Absolute Lymphocytes (CBC) 2.6 K/uL (0.7-4.9); Hematocrit 47.6 % (39.6-49.0); Lymphocytes % 29.1 % (15.3-44.8); MCV 90.1 fL (80-100); RBC Red Blood Cell Count 5.29 M/uL (4.33-5.43)
[2023-03-02 06:59] LABS: Albumin 3.6 g/dL (3.4-5.0); Bilirubin Total 0.5 mg/dL (0.2-1.0); Magnesium 2.1 mg/dL (1.6-2.4); Phosphorus 3.2 mg/dL (2.5-4.9); Potassium 3.9 mEq/L (3.5-5.1); Protein, Total 7.6 g/dL (6.4-8.2)
[2023-03-02 07:58] VITALS: BP 121/75; TEMP 97.1
[2023-03-02] MEDS ORDERED: ASPIRIN EC 81 MG TAB PO SCH (09:00)
[2023-03-02] MEDS ORDERED: AMLODIPINE 10 MG TAB PO SCH (09:00)
[2023-03-02] MEDS ORDERED: ENOXAPARIN 40 MG/0.4 ML SQ SCH (09:00)
[2023-03-02] MEDS ORDERED: CLOPIDOGREL 75 MG TABLET PO SCH (09:00)
[2023-03-02] MEDS ORDERED: POTASSIUM CL SA 10 MEQ TAB PO ONE (09:00)
== END 2023-03-02 10:00 | disposition home or self-care (01) ==
LOC: ER 09:20 → ERHOLD 11:17 → 2ND 14:03
PROVIDERS: ADMIT Hospitalist; ATTEND Hospitalist
DX: G45.9 Transient cerebral ischemic attack, unspecified (principal); R20.0 Anesthesia of skin; R29.700 NIHSS score 0; Z86.73 Personal history of transient ischemic attack (TIA), and cerebral infarction without residual deficits; Z87.891 Personal history of nicotine dependence
CPT/HCPCS: 36415; 70450; 70496; 70498; 70551; 71045; 80048; 80053; 80061; 80076; 81241; 82565; 82947; 83735; 84100; 84484; 85025; 85610; 85730; 93005; 99285; G0378; J1650; J7030; Q9967